=== PATIENT | male | born 1960 | race Caucasian/White ===

== ENCOUNTER 2016-10-06 08:57 | Emergency (ER) | payer MEDICARE, OTHER, SELFPAY ==
[2016-10-06 09:20] VITALS: BP 122/98
[2016-10-06] MEDS ORDERED: Ketorolac 60 MG/2 ML SDV IM ONE (09:45)
--- NOTE | 2016-10-06 09:51 | EDM.PDOC ---
ED HPI Trauma - General Chief Complaint: Lower Extremity Injury/Pain Stated Complaint: right knee pain Time Seen by Provider: 10/06/16 09:26 Source: Reports: Patient History Limitations: Reports: No limitations - History of Present Illness INITIAL COMMENTS - FREE TEXT/NARRATIVE: PT STATES HE HAS WORSENING OF CHRONIC RIGHT KNEE PAIN. SCHEDULED FOR MRI TOMORROW. DENIES RECENT FALL OR INJURY, CALF PAIN OR SWELLING, FEVER, CP, OR SOB. Occurred When: other (CHRONIC) Method of Injury: unknown Pain/Injury Location: Reports: none Consciousness: Reports: no loss of consciousness Associated Symptoms: Reports: no other symptoms Allergies/ADRs: Allergies cephalexin Allergy (Verified 10/06/16 09:20) Vomiting Home Medications: Ambulatory Orders Acetaminophen/oxyCODONE [Percocet 325-5 MG] 1 - 2 tab PO Q4H PRN 04/06/14 [ Confirmed 10/06/16] Fluticasone/Salmeterol [Advair 100-50 Diskus] 1 puff INH BID PRN 04/06/14 [ Confirmed 10/06/16] Metoprolol Tartrate [Lopressor] 25 mg PO DAILY 04/06/14 [Confirmed 10/06/16] atorvaSTATin [Lipitor] 20 mg PO DAILY 04/06/14 [Confirmed 10/06/16] Ticagrelor [Brilinta] 90 mg PO DAILY 02/27/15 [Confirmed 10/06/16] Aspirin [Lo-Dose Aspirin EC] 80 mg PO DAILY 10/06/16 [Confirmed 10/06/16] Prednisone [IMW: predniSONE] 20 mg PO WITHBREAKFAST #7 tab 10/06/16 Social & Family History - Tobacco Use Smoking Status *Q: Current Some Day Smoker Years of Tobacco use: 40 Packs/Tins Daily: 0.5 Used Tobacco, but Quit: No Month Tobacco Last Used: march Second Hand Smoke Exposure: No - Caffeine Use Caffeine Use: Reports: None - Alcohol Use Days Per Week of Alcohol Use: 0 - Recreational Drug Use Recreational Drug Use: Yes Drug Use in Last 12 Months: Yes Recreational Drug Type: Reports: Marijuana/Hashish Review of Systems - Review of Systems Review Of Systems: ROS reveals no pertinent complaints other than HPI. Constitutional: Reports: no symptoms Eyes: Reports: no symptoms Ears: Reports: no symptoms Nose: Reports: no symptoms Mouth/Throat: Reports: no symptoms Respiratory: Reports: No Symptoms Cardiovascular: Reports: no symptoms GI/Abdominal: Reports: No symptoms Musculoskeletal: Reports: leg pain, joint pain (RIGHT KNEE) Skin: Reports: no symptoms Neurological: Reports: No Symptoms Psychiatric: Reports: no symptoms Trauma Exam - Physical Exam Exam: See Below Exam Limited By: No limitations General Appearance: Reports: alert, WD/WN, no apparent distress Head: Reports: atraumatic, normocephalic Throat/Mouth: Reports: Normal inspection, Normal oropharynx, No airway compromise Respiratory Exam: Reports: no respiratory distress Back: Reports: full range of motion, normal inspection Extremities: Reports: no pedal edema, pain with movement (RIGHT KNEE), tenderness Neurologic: Reports: normal mood/affect, oriented x 3 Skin: Reports: Normal color, Warm/dry Course - Vital Signs Last Recorded V/S: Last Vital Signs Temp 99.4 F 10/06/16 09:15 Pulse 77 10/06/16 09:15 Resp 18 10/06/16 09:15 BP 122/98 H 10/06/16 09:15 Pulse Ox 98 10/06/16 09:15 - Orders/Labs/Meds Orders: Active Orders 24 hr Category Date Time Status Ketorolac [Toradol] Med 10/06/16 09:45 Once 60 mg IM ONETIME ONE - Re-Assessments/Exams Free Text/Narrative Re-Assessment/Exam: 10/06/16 09:51 PT AFEBRILE, NONTOXIC APPEARING. CRUTCHES AND TORADOL GIVEN. SCHEDULED FOR MRI TOMORROW. Departure - Departure Time of Disposition: 09:53 Disposition: Home, Self-Care 01 Condition: good Clinical Impression: Arthritis Knee pain, chronic Qualifiers: Laterality: right Qualified Code(s): M25.561 - Pain in right knee; G89.29 - Other chronic pain Instructions: Crutch Use, [id number], Knee Pain, [id number] Forms: ED Department Discharge - My Orders Last 24 Hours: My Active Orders 10/06/16 09:45 Ketorolac [Toradol] 60 mg IM ONETIME ONE - Assessment/Plan Last 24 Hours: My Active Orders 10/06/16 09:45 Ketorolac [Toradol] 60 mg IM ONETIME ONE Assessment:: CHRONIC RIGHT KNEE PAIN Plan: CRUTCHES / MRI / FOLLOW UP IN CLINIC NEXT WEEK
== END 2016-10-06 10:45 | disposition home or self-care (01) ==
LOC: KA.ED 08:57
DX: M25.561 Pain in right knee (principal); G89.29 Other chronic pain; M19.90 Unspecified osteoarthritis, unspecified site; Z88.1 Allergy status to other antibiotic agents
CPT/HCPCS: 96372; 99283; J1885

== ENCOUNTER 2016-12-02 15:40 | Emergency (ER) | payer MEDICARE, SELFPAY ==
[2016-12-02] MEDS ORDERED: Diazepam 5 MG Tab PO ONE (16:02)
[2016-12-02] MEDS ORDERED: Dexamethasone 10 MG/ML SDV IM ONE (16:02)
[2016-12-02] MEDS ORDERED: Ketorolac 60 MG/2 ML SDV IM ONE (16:02)
--- NOTE | 2016-12-02 16:18 | EDM.PDOC ---
ED HPI GENERAL MEDICAL PROBLEM - General Chief Complaint: Back Pain or Injury Stated Complaint: LOW BACK PAIN Time Seen by Provider: 12/02/16 15:56 Source of Information: Reports: Patient History Limitations: Reports: No Limitations - History of Present Illness INITIAL COMMENTS - FREE TEXT/NARRATIVE: PT STATES HE HAS RIGHT KNEE REPLACEMENT 2 WEEKS AGO AND HAS BEEN FAVORING LIMB AND DEVELOPED LOW BACK PAIN. DENIES FALL OR TRAUMA, FLANK PAIN, ABD PAIN, N/V/D , PAIN RADIATION DOWN LEGS, SADDLE ANESTHESIA, OR URINARY/BOWEL INCONT. 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: Other Medication(s) (OXYCODONE) - Related Data Allergies Allergy/AdvReac Type Severity Reaction Status Date / Time cephalexin Allergy Vomiting Verified 12/02/16 16:45 Home Meds: Home Meds Fluticasone/Salmeterol [Advair 100-50 Diskus] 1 puff INH BID PRN 04/06/14 [ History] Metoprolol Tartrate [Lopressor] 25 mg PO DAILY 04/06/14 [History] atorvaSTATin [Lipitor] 20 mg PO DAILY 04/06/14 [History] Aspirin [Lo-Dose Aspirin EC] 80 mg PO DAILY 10/06/16 [History] Albuterol/Ipratropium [Combivent Respimat] 1 puff INH Q6H PRN 12/02/16 [History] oxyCODONE HCl [Oxycontin] 10 mg PO BID 12/02/16 [History] oxyCODONE HCl/Acetaminophen [Percocet 10-325 mg Tablet] 1 tab PO Q6H PRN [History] Social & Family History - Tobacco Use Smoking Status *Q: Current Some Day Smoker Years of Tobacco use: 40 Packs/Tins Daily: 0.5 Used Tobacco, but Quit: No Month Tobacco Last Used: march Second Hand Smoke Exposure: No - Caffeine Use Caffeine Use: Reports: None - Alcohol Use Days Per Week of Alcohol Use: 0 - Recreational Drug Use Recreational Drug Use: Yes Drug Use in Last 12 Months: Yes Recreational Drug Type: Reports: Marijuana/Hashish ED ROS GENERAL - Review of Systems Review Of Systems: ROS reveals no pertinent complaints other than HPI. Constitutional: Reports: No Symptoms HEENT: Reports: No Symptoms Respiratory: Reports: No Symptoms Cardiovascular: Reports: No Symptoms Endocrine: Reports: No Symptoms GI/Abdominal: Reports: No Symptoms : Reports: No Symptoms Musculoskeletal: Reports: Back Pain Skin: Reports: No Symptoms Neurological: Reports: No Symptoms Psychiatric: Reports: No Symptoms Hematologic/Lymphatic: Reports: No Symptoms Immunologic: Reports: No Symptoms ED EXAM,LOWER BACK PAIN/INJURY - Physical Exam Exam: See Below Exam Limited By: No Limitations General Appearance: Alert, WD/WN, No Apparent Distress Throat/Mouth: Normal Inspection, Normal Oropharynx, No Airway Compromise Head: Atraumatic, Normocephalic Neck: Normal Inspection Respiratory/Chest: No Respiratory Distress, Lungs Clear, Normal Breath Sounds Cardiovascular: Regular Rate, Rhythm, No Murmur GI/Abdominal: Normal Bowel Sounds, Soft, Non-Tender Back Exam: Decreased Range of Motion (SECONDARY TO PAIN), Paraspinal Tenderness. No: CVA Tenderness (L), CVA Tenderness (R), Vertebral Tenderness Extremities: Normal Inspection, Normal Range of Motion, Non-Tender, No Pedal Edema Neurological: Alert, Normal Dorsiflexion, Normal Plantar Flexion, No Motor/ Sensory Deficits, Oriented x 3 Psychiatric: Normal Affect, Normal Mood Skin Exam: Warm, Dry, Intact, Normal Color, No Rash Lymphatic: No Adenopathy Course - Orders/Labs/Meds Orders: Active Orders 24 hr Category Date Time Status Dexamethasone Med 12/02/16 16:02 Once 8 mg IM ONETIME ONE Diazepam [Valium] Med 12/02/16 16:02 Once 5 mg PO ONETIME ONE Ketorolac [Toradol] Med 12/02/16 16:02 Once 60 mg IM ONETIME ONE - Re-Assessments/Exams Free Text/Narrative Re-Assessment/Exam: 12/02/16 17:08 PT AFEBRILE, NONTOXIC APPEARING, PAIN MOSTLY RELIEVED. Departure - Departure Time of Disposition: 17:09 Disposition: Home, Self-Care 01 Condition: good Clinical Impression: Low back pain Qualifiers: Chronicity: chronic Back pain laterality: bilateral Sciatica presence: without sciatica Qualified Code(s): M54.5 - Low back pain; G89.29 - Other chronic pain - Discharge Information Instructions: Back Pain, Adult Additional Instructions: FOLLOW UP WITH DR HAILE NEXT WEEK. - My Orders Last 24 Hours: My Active Orders 12/02/16 16:02 Dexamethasone 8 mg IM ONETIME ONE Diazepam [Valium] 5 mg PO ONETIME ONE Ketorolac [Toradol] 60 mg IM ONETIME ONE - Assessment/Plan Last 24 Hours: My Active Orders 12/02/16 16:02 Dexamethasone 8 mg IM ONETIME ONE Diazepam [Valium] 5 mg PO ONETIME ONE Ketorolac [Toradol] 60 mg IM ONETIME ONE Assessment:: LOW BACK PAIN Plan: FOLLOW UP WITH DR HAILE IN 3-5 DAYS
[2016-12-02 16:54] VITALS: BP 128/83
== END 2016-12-02 17:20 | disposition home or self-care (01) ==
LOC: KA.ED 15:40
DX: M54.5 Low back pain (principal); G89.29 Other chronic pain; F17.210 Nicotine dependence, cigarettes, uncomplicated; Z88.1 Allergy status to other antibiotic agents; Z79.82 Long term (current) use of aspirin; Z79.899 Other long term (current) drug therapy
CPT/HCPCS: 96372; 99283; A9270; J1100; J1885

== ENCOUNTER 2017-04-14 19:52 | Emergency (ER) | payer MEDICARE, MEDICAID, SELFPAY ==
[2017-04-14 20:03] VITALS: BP 135/80
--- NOTE | 2017-04-14 20:19 | EDM.PDOC ---
ED HPI GENERAL MEDICAL PROBLEM - General Stated Complaint: puncture wound to foot Time Seen by Provider: 04/14/17 20:05 Source of Information: Reports: Patient History Limitations: Reports: No Limitations - History of Present Illness INITIAL COMMENTS - FREE TEXT/NARRATIVE: Patient presents with right foot/gt toe pain and redness after stepping on a felecia wire about 24 hours ago. The wire poked through the sole of his tennis shoe. He says he had a tetanus shot in 2011 in [place]. Right Feet Pain Score (Numeric/FACES): 5 - Related Data Allergies Allergy/AdvReac Type Severity Reaction Status Date / Time cephalexin Allergy Vomiting Verified 04/14/17 20:03 Home Meds: Home Meds Fluticasone/Salmeterol [Advair 100-50 Diskus] 1 puff INH BID 04/06/14 [History] Metoprolol Tartrate [Lopressor] 25 mg PO DAILY 04/06/14 [History] atorvaSTATin [Lipitor] 20 mg PO BEDTIME 04/06/14 [History] Aspirin [Lo-Dose Aspirin EC] 80 mg PO DAILY 10/06/16 [History] Albuterol/Ipratropium [Combivent Respimat] 1 puff INH Q6H PRN 12/02/16 [History] oxyCODONE HCl [Oxycontin] 10 mg PO BID 12/02/16 [History] oxyCODONE HCl/Acetaminophen [Percocet 10-325 mg Tablet] 1 tab PO Q6H PRN [History] Social & Family History - Tobacco Use Smoking Status *Q: Current Some Day Smoker Years of Tobacco use: 40 Packs/Tins Daily: 0.5 Used Tobacco, but Quit: No Month Tobacco Last Used: march Second Hand Smoke Exposure: No - Caffeine Use Caffeine Use: Reports: None - Alcohol Use Days Per Week of Alcohol Use: 0 - Recreational Drug Use Recreational Drug Use: Yes Drug Use in Last 12 Months: Yes Recreational Drug Type: Reports: Marijuana/Hashish Recreational Drug Use Frequency: Weekly Review of Systems - Review of Systems Review Of Systems: See Below Constitutional: Denies: Chills, Fever Eyes: Denies: Vision Change Ears: Denies: Dizziness Nose: Reports: No Symptoms Mouth/Throat: Reports: No Symptoms Respiratory: Denies: Shortness of Breath Cardiovascular: Denies: Chest Pain GI/Abdominal: Denies: Abdominal Pain Musculoskeletal: Reports: Foot Pain Skin: Denies: Cyanosis, Jaundice, Mottled, Pallor, Diaphoresis Neurological: Denies: Confusion ED EXAM, GENERAL - Physical Exam Exam: See Below Exam Limited By: No Limitations General Appearance: Alert, WD/WN, No Apparent Distress Eye Exam: Bilateral Eye: EOMI, Normal Inspection, PERRL Ears: Normal External Exam, Hearing Grossly Normal Nose: Normal Inspection, No Blood Throat/Mouth: Normal Lips, Normal Voice, No Airway Compromise Head: Atraumatic, Normocephalic Neck: Full Range of Motion Respiratory/Chest: No Respiratory Distress, No Accessory Muscle Use Extremities: Other (Right foot has mild erythema in distal third medially; involving Gt toe, 2nd toe. There is a puncture wound evident at plantar surface of webspace between Gt and 2nd toes. Joints have preserved ROM actively and passively but with some discomfort of Gt toe.) Neurological: Alert, Oriented, Normal Cognition, No Motor/Sensory Deficits Psychiatric: Normal Affect, Normal Mood Skin Exam: Warm, Dry, No Rash Course - Vital Signs Last Recorded V/S: Last Vital Signs Temp 97.6 F 04/14/17 20:00 Pulse 76 04/14/17 20:00 Resp 18 04/14/17 20:00 BP 135/80 04/14/17 20:00 Pulse Ox 97 04/14/17 20:00 - Orders/Labs/Meds Orders: Active Orders 24 hr Category Date Time Status Foot 2V Rt [CR] Stat Exams 04/14/17 20:11 Ordered - Re-Assessments/Exams Free Text/Narrative Re-Assessment/Exam: 04/14/17 20:42 Xrays show no evidence of foreign body or other pathology. Reviewed latest antibiotic recommendations on UpToDate and will treat with Cipro for coverage of Pseudomonas since it was through the sole of shoe. Discussed treatment plan and expectations with patient and his , including that if Cipro doesn't take care of this he will likely require IV antibiotics and/or surgical debridement. Pt agrees and is discharged in stable condition. Departure - Departure Time of Disposition: 20:40 Disposition: Home, Self-Care 01 Condition: Good Clinical Impression: Puncture wound of plantar aspect of right foot with infection Qualifiers: Encounter type: initial encounter Qualified Code(s): S91.331A - Puncture wound without foreign body, right foot, initial encounter; L08.9 - Local infection of the skin and subcutaneous tissue, unspecified; L08.9 - Local infection of the skin and subcutaneous tissue, unspecified - Discharge Information Additional Instructions: 1. Take the Cipro as directed. 2. Follow up with Dr. Cruz on Tuesday for recheck. 3. If worsening noticeably or fever developing go to ER over the weekend. - My Orders Last 24 Hours: My Active Orders 04/14/17 20:11 Foot 2V Rt [CR] Stat - Assessment/Plan Last 24 Hours: My Active Orders 04/14/17 20:11 Foot 2V Rt [CR] Stat
[2017-04-14] MEDS ORDERED: Diphtheria,Pertussis(Acell),Tetanus Vaccine 0.5 ML SDV IM ONE (20:21)
[2017-04-14] MEDS ORDERED: Ciprofloxacin 500 MG Tab PO ONE (20:38)
== END 2017-04-14 20:47 | disposition home or self-care (01) ==
LOC: KA.ED 19:52
DX: S91.331A Puncture wound without foreign body, right foot, initial encounter (principal); L08.9 Local infection of the skin and subcutaneous tissue, unspecified; Z23 Encounter for immunization; F17.210 Nicotine dependence, cigarettes, uncomplicated; Z88.1 Allergy status to other antibiotic agents; Z79.82 Long term (current) use of aspirin; Z79.899 Other long term (current) drug therapy; W22.8XXA Striking against or struck by other objects, initial encounter
CPT/HCPCS: 73620; 90471; 90715; 99283; A9270

== ENCOUNTER 2017-09-16 11:00 | Emergency (ER) | payer MEDICARE, MEDICAID ==
[2017-09-16] MEDS ORDERED: Sodium Chloride 0.9% 5 ML Syringe FLUSH PRN (11:19)
--- NOTE | 2017-09-16 11:30 | EDM.PDOC ---
ED HPI GENERAL MEDICAL PROBLEM - General Chief Complaint: Chest Pain Stated Complaint: CHEST PAIN Time Seen by Provider: 09/16/17 11:16 Source of Information: Reports: Patient History Limitations: Reports: No Limitations - History of Present Illness INITIAL COMMENTS - FREE TEXT/NARRATIVE: PATIENT IS A 57-YEAR-OLD GENTLEMAN WHO PRESENTS TO THE EMERGENCY DEPARTMENT THIS MORNING WITH A COMPLAINT OF CHEST PAIN. PAIN IS DESCRIBED TIGHTNESS ACROSS MIDDLE OF CHEST, HAS BEEN INTERMITTENT FOR ABOUT 1 WEEK, LASTS A FEW MINUTES, RESOLVES SPONTANEOUSLY, AND HAS NO RADIATION. PATIENT UNDERWENT SPINAL INJECTION FOR LOW BACK PAIN ON SEPTEMBER 14. PROVIDER NOTES FROM PROCEDURE STATED IT WAS UNEVENTFUL. PATIENT STATES BACK PAIN REMAINS, HOWEVER DENIES SHORTNESS OF BREATH, NAUSEA, VOMITING, DIARRHEA, ABDOMINAL PAIN, SADDLE ANESTHESIA, BLADDER OR BOWEL INCONTINENCE, HEADACHE, OR FEVER. Onset: Gradual Duration: Minutes: Location: Reports: Chest Quality: Reports: Other (TIGHTNESS) Improves with: Reports: Other (SPONTANEOUSLY) Worsens with: Reports: None Associated Symptoms: Reports: No Other Symptoms - Related Data Allergies Allergy/AdvReac Type Severity Reaction Status Date / Time cephalexin Allergy Vomiting Verified 09/16/17 11:13 Home Meds: Home Meds Fluticasone/Salmeterol [Advair 100-50 Diskus] 1 puff INH BID 04/06/14 [History] Metoprolol Tartrate [Lopressor] 25 mg PO DAILY 04/06/14 [History] atorvaSTATin [Lipitor] 20 mg PO BEDTIME 04/06/14 [History] Aspirin [Lo-Dose Aspirin EC] 80 mg PO DAILY 10/06/16 [History] Albuterol/Ipratropium [Combivent Respimat] 1 puff INH Q6H PRN 12/02/16 [History] oxyCODONE HCl [Oxycontin] 10 mg PO BID 12/02/16 [History] oxyCODONE HCl/Acetaminophen [Percocet 10-325 mg Tablet] 1 tab PO Q6H PRN [History] Past Medical History Cardiovascular History: Reports: High Cholesterol, Hypertension, [place], Stents Musculoskeletal History: Reports: Back Pain, Chronic, Neck Pain, Chronic - Past Surgical History Cardiovascular Surgical History: Reports: Coronary Artery Bypass Social & Family History - Family History Family Medical History: Noncontributory - Tobacco Use Smoking Status *Q: Current Some Day Smoker Years of Tobacco use: 40 Packs/Tins Daily: 0.5 Used Tobacco, but Quit: No Month Tobacco Last Used: march Hand Smoke Exposure: No - Caffeine Use Caffeine Use: Reports: None - Alcohol Use Days Per Week of Alcohol Use: 0 - Recreational Drug Use Recreational Drug Use: Yes Drug Use in Last 12 Months: Yes Recreational Drug Type: Reports: Marijuana/Hashish Recreational Drug Use Frequency: Weekly ED ROS GENERAL - Review of Systems Review Of Systems: ROS reveals no pertinent complaints other than HPI. Constitutional: Reports: No Symptoms HEENT: Reports: No Symptoms Respiratory: Reports: No Symptoms Cardiovascular: Reports: Chest Pain Endocrine: Reports: No Symptoms GI/Abdominal: Reports: No Symptoms : Reports: No Symptoms Musculoskeletal: Reports: Back Pain (OF CHRONIC NATURE) Skin: Reports: No Symptoms Neurological: Reports: No Symptoms Psychiatric: Reports: No Symptoms Hematologic/Lymphatic: Reports: No Symptoms Immunologic: Reports: No Symptoms ED EXAM, GENERAL - Physical Exam Exam: See Below Exam Limited By: No Limitations General Appearance: Alert, WD/WN, No Apparent Distress Nose: Normal Inspection, Normal Mucosa, No Blood Throat/Mouth: Normal Inspection, Normal Oropharynx, No Airway Compromise Head: Atraumatic, Normocephalic Neck: Normal Inspection, Supple, Non-Tender Respiratory/Chest: No Respiratory Distress, Lungs Clear, Normal Breath Sounds, No Accessory Muscle Use, Chest Non-Tender Cardiovascular: Regular Rate, Rhythm, No Murmur GI/Abdominal: Normal Bowel Sounds, Soft, Non-Tender, No Organomegaly, No Distention, No Abnormal Bruit, No Mass Back Exam: Paraspinal Tenderness. No: CVA Tenderness (L), CVA Tenderness (R) Extremities: Normal Inspection, No Pedal Edema Neurological: Alert, Oriented, Normal Cognition Psychiatric: Normal Affect, Normal Mood Skin Exam: Warm, Dry, Intact, Normal Color, No Rash Lymphatic: No Adenopathy EKG INTERPRETATION EKG Date: 09/16/17 Time: 11:00 Rhythm: Other (Sinus bradycardia) Rate (Beats/Min): 56 [place]: Normal P-Wave: Present QRS: Normal ST-T: Normal QT: Normal Comparison: Change From Previous EKG Course - Vital Signs Last Recorded V/S: Last Vital Signs Temp 96.9 F 09/16/17 11:16 Pulse 54 L 09/16/17 11:16 Resp 16 09/16/17 11:16 BP 137/75 09/16/17 11:16 Pulse Ox 98 09/16/17 11:16 - Orders/Labs/Meds Orders: Active Orders 24 hr Category Date Time Status EKG Documentation Completion [RC] ASDIRECTED Care 09/16/17 11:19 Ordered Peripheral IV Care [RC] . DIRECTED Care 09/16/17 11:19 Ordered Chest 2V [CR] Stat Exams 09/16/17 11:16 Ordered CBC WITH AUTO DIFF [HEME] Stat Lab 09/16/17 11:16 Ordered COMPREHENSIVE METABOLIC PN,CMP [CHEM] Stat Lab 09/16/17 11:16 Ordered INR,PT,PROTHROMBIN TIME [COAG] Stat Lab 09/16/17 11:16 Ordered MAGNESIUM [CHEM] Stat Lab 09/16/17 11:16 Ordered PTT,PARTIAL THROMBOPLSTIN TIME [COAG] Stat Lab 09/16/17 11:16 Ordered TROPONIN I [CHEM] Stat Lab 09/16/17 11:16 Ordered UA W/MICROSCOPIC [URIN] Stat Lab 09/16/17 11:16 Ordered Sodium Chloride 0.9% [Syrex Flush] Med 09/16/17 11:19 Ordered 5 ml FLUSH Q8HR PRN Peripheral IV Insertion Adult [OM.PC] Routine Oth 09/16/17 11:19 Ordered EKG 12 Lead [EK] Routine Ther 09/16/17 11:16 Ordered Medication Orders Sodium Chloride (Syrex Flush) 5 ml FLUSH Q8HR PRN PRN Reason: Keep Vein Open Meds: Medications Generic Name Dose Route Start Last Admin Trade Name Freq PRN Reason Stop Dose Admin Sodium Chloride 5 ml 09/16/17 11:19 Syrex Flush FLUSH Q8HR PRN Keep Vein Open - Radiology Interpretation Free Text/Narrative:: Chest x-ray x-ray shows no acute cardiopulmonary process - Re-Assessments/Exams Free Text/Narrative Re-Assessment/Exam: 09/16/17 12:08 Patient afebrile, nontoxic appearing, vital signs stable, no chest pain or shortness of breath. Patient will follow-up with Dr. Cuellar next week. Departure - Departure Time of Disposition: 12:09 Disposition: Home, Self-Care 01 Condition: Good Clinical Impression: Atypical chest pain Instructions: Nonspecific Chest Pain, [id number] Referrals: Nancy Graham MD [Primary Care Provider] - Additional Instructions: Follow-up with Dr. Cuellar Tuesday or Tuesday next week. Return to emergency department sooner if symptoms continue or worsen. - My Orders Last 24 Hours: My Active Orders 09/16/17 11:16 Chest 2V [CR] Stat CBC WITH AUTO DIFF [HEME] Stat COMPREHENSIVE METABOLIC PN,CMP [CHEM] Stat INR,PT,PROTHROMBIN TIME [COAG] Stat MAGNESIUM [CHEM] Stat PTT,PARTIAL THROMBOPLSTIN TIME [COAG] Stat TROPONIN I [CHEM] Stat UA W/MICROSCOPIC [URIN] Stat EKG 12 Lead [EK] Routine 09/16/17 11:19 EKG Documentation Completion [RC] ASDIRECTED Peripheral IV Care [RC] . DIRECTED Sodium Chloride 0.9% [Syrex Flush] 5 ml FLUSH Q8HR PRN Peripheral IV Insertion Adult [OM.PC] Routine - Assessment/Plan Last 24 Hours: My Active Orders 09/16/17 11:16 Chest 2V [CR] Stat CBC WITH AUTO DIFF [HEME] Stat COMPREHENSIVE METABOLIC PN,CMP [CHEM] Stat INR,PT,PROTHROMBIN TIME [COAG] Stat MAGNESIUM [CHEM] Stat PTT,PARTIAL THROMBOPLSTIN TIME [COAG] Stat TROPONIN I [CHEM] Stat UA W/MICROSCOPIC [URIN] Stat EKG 12 Lead [EK] Routine 09/16/17 11:19 EKG Documentation Completion [RC] ASDIRECTED Peripheral IV Care [RC] . DIRECTED Sodium Chloride 0.9% [Syrex Flush] 5 ml FLUSH Q8HR PRN Peripheral IV Insertion Adult [OM.PC] Routine Assessment:: Atypical chest pain Plan: Follow-up with Dr. Cuellar next week
[2017-09-16 11:52] LABS: CHLORIDE,CL 106 mmol/L (98-115); SODIUM,NA 139 mmol/L (136-145)
[2017-09-16 12:05] VITALS: BP 130/81
== END 2017-09-16 12:14 | disposition home or self-care (01) ==
LOC: KA.ED 11:00
DX: R07.89 Other chest pain (principal); E78.00 Pure hypercholesterolemia, unspecified; I10 Essential (primary) hypertension; F17.210 Nicotine dependence, cigarettes, uncomplicated; Z88.1 Allergy status to other antibiotic agents; Z79.899 Other long term (current) drug therapy; Z79.82 Long term (current) use of aspirin
CPT/HCPCS: 71046; 80053; 81001; 83735; 84484; 85025; 85610; 85730; 99285

== ENCOUNTER 2019-01-30 08:24 | Day surgery (SDC) | payer MEDICARE, MEDICAID, OTHER ==
[~2019-01-30 08:24] MED LIST: Lactated Ringers 1,000 ML IV SCH; Midazolam 1 MG/ML 2 ML SDV ONE; Propofol 200 MG/20 ML SDV ONE; Sodium Chloride 0.9% 10 ML Syringe FLUSH PRN
[2019-01-30] MEDS ORDERED: Propofol 200 MG/20 ML SDV IV ONE (09:06)
[2019-01-30] MEDS ORDERED: Midazolam 1 MG/ML 2 ML SDV IV ONE (09:06)
--- NOTE | 2019-01-30 09:09 | PCM.PN ---
- General Info Date of Service: 01/30/19 - Review of Systems Systems Review Comment:: Patient here for colonoscopy. He has a history of rectal bleeding. He also has problems with symptomatic hemorrhoids. He is medically stable to proceed with no recent significant changes to his health status. I have discussed the proposed colonoscopy with possible hemorrhoid banding with the patient. He agrees to proceed accepting risks. - Patient Data Vitals - Most Recent: Last Vital Signs Temp 98 F 01/30/19 08:27 Pulse 70 01/30/19 08:27 Resp 17 01/30/19 08:27 BP 130/78 01/30/19 08:27 Pulse Ox 98 01/30/19 08:27 Weight - Most Recent: 60.781 kg Med Orders - Current: Current Medications Lactated Ringer's (Ringers, Lactated) 1,000 mls @ 50 mls/hr IV ASDIRECTED [facility] Last Admin: 01/30/19 08:30 Dose: 50 mls/hr Sodium Chloride (Saline Flush) 10 ml FLUSH Q8HR PRN PRN Reason: keep vein open Discontinued Medications Midazolam HCl (Versed 1 Mg/Ml) Confirm Administered Dose 2 mg .ROUTE .STK-MED ONE Stop: 01/30/19 07:41 Propofol (Diprivan 20 Ml) Confirm Administered Dose 200 mg .ROUTE .STK-MED ONE Stop: 01/30/19 07:41 - Problem List Review Problem List Initiated/Reviewed/Updated: Yes - My Orders Last 24 Hours: My Active Orders 01/30/19 07:14 Resuscitation Status Routine 01/30/19 08:00 Peripheral IV Care [RC] . DIRECTED Vital Signs [RC] PER UNIT ROUTINE Lactated Ringers [Ringers, Lactated] 1,000 ml IV ASDIRECTED Sodium Chloride 0.9% [Saline Flush] 10 ml FLUSH Q8HR PRN Peripheral IV Insertion Adult [OM.PC] Routine 01/30/19 08:30 Patient to Empty Bladder [RC] ASDIRECTED 01/30/19 09:00 Verify Patient Consent Obtain [RC] ASDIRECTED 01/30/19 Breakfast Nothing Per Oral Diet [DIET] - Assessment Assessment:: Rectal Bleeding Symptomatic Hemorrhoids - Plan Plan:: Colonoscopy with possible hemorrhoid banding
--- NOTE | 2019-01-30 10:02 | PCM.OPNOTE ---
- General Post-Op/Procedure Note Date of Surgery/Procedure: 01/30/19 Operative Procedure(s): Colonoscopy with Polypectomy and Hemorrhoid Banding Findings: Multiple colon polyps Internal and External Hemorrhoids Pre Op Diagnosis: History of rectal bleeding. Symptomatic hemorrhoids Post-Op Diagnosis: Colon Polyps. Hemorrhoids Anesthesia Technique: MAC Primary Surgeon: Aroldo Moralez Pathology: Colon Polyps Output, Urine Amount: 0 EBL in mLs: 2 Complications: None Condition: Good
[2019-01-30 10:46] VITALS: BP 146/75; PULSE 40
--- NOTE | 2019-01-30 15:45 | OR ---
DATE OF SURGERY: 01/30/2019 SURGEON: Aroldo Moralez MD PREOPERATIVE DIAGNOSIS: History of rectal bleeding and symptomatic hemorrhoids. POSTOPERATIVE DIAGNOSIS: Colon polyps and internal and external hemorrhoids. OPERATION PERFORMED: Colonoscopy with polypectomy and hemorrhoid banding. INDICATIONS FOR SURGERY: This 58-year-old male has a history of rectal bleeding and has been having symptoms related to his hemorrhoids. He desires hemorrhoid banding if indicated and also comes for colonoscopy. FINDINGS: Multiple polyps were noted on today's exam. In the cecum, there is a 4 mm sessile polyp. There is a 5 mm sessile polyp in the mid transverse colon and a 7 mm semi-pedunculated polyp in the sigmoid colon 30 cm from the anal verge. The remainder of the colon appears normal. The patient does have internal and external hemorrhoids. DESCRIPTION OF PROCEDURE: The patient was taken to the operating room. He was given intravenous sedation and with him in the left lateral decubitus position, digital rectal exam was performed showing no rectal masses. The Olympus colonoscope was inserted into the rectum. Retroflexed examination of the rectal canal is performed. The scope was then carefully advanced under direct visualization through the entire length of the colon until the cecum is reached. Cecal acquisition is confirmed by noting normal internal cecal anatomy including the appendiceal orifice and ileocecal valve. The light is also noted to transilluminate the abdominal wall in the right lower quadrant. In the cecum, the above-described polyp was identified. It was removed completely with multiple bites of the biopsy forceps. The scope was then slowly withdrawn sequentially re-examining the colonic segments and in the transverse colon, the other small polyp is identified and removed completely with multiple bites of the biopsy forceps. The scope was further withdrawn and in the sigmoid colon, the slightly larger polyp is identified. This is removed with a cautery snare. This polyp is retrieved into a polyp trap. Examination was then completed. No sign of any complication was noted. With the patient's symptoms related to his hemorrhoids and internal hemorrhoids along with external hemorrhoids noted on the exam, hemorrhoid banding is performed. Bands are placed on internal hemorrhoids at the 4 o'clock position on the patient's left side and the 7 o'clock position on the patient's right side posteriorly. Good tissue purchase is achieved and no sign of complication is noted. The patient is then taken from the operating room in satisfactory condition. ESTIMATED BLOOD LOSS: 2 mL. COMPLICATIONS: None. PROGNOSIS: Good. /[id number]/MODL MTDD
== END 2019-01-30 11:21 | disposition home or self-care (01) ==
LOC: KA.SDS 08:24
PROVIDERS: ATTEND Surgery
DX: K64.8 Other hemorrhoids (principal); K64.4 Residual hemorrhoidal skin tags; D12.0 Benign neoplasm of cecum; D12.3 Benign neoplasm of transverse colon; D12.5 Benign neoplasm of sigmoid colon; K62.5 Hemorrhage of anus and rectum; I25.10 Atherosclerotic heart disease of native coronary artery without angina pectoris; I10 Essential (primary) hypertension; J44.9 Chronic obstructive pulmonary disease, unspecified; F17.200 Nicotine dependence, unspecified, uncomplicated; C67.9 Malignant neoplasm of bladder, unspecified; Z88.1 Allergy status to other antibiotic agents; Z95.5 Presence of coronary angioplasty implant and graft; Z79.01 Long term (current) use of anticoagulants; Z79.82 Long term (current) use of aspirin; Z79.02 Long term (current) use of antithrombotics/antiplatelets; Z79.899 Other long term (current) drug therapy
CPT/HCPCS: 00811; 45380; 45385; 46946; J2250; J2704; J7120; 88305

== ENCOUNTER → 2019-12-16 08:22 | Emergency (ER) | payer MEDICARE, MEDICAID ==
[~2019-12-16 08:22] MED LIST changes: -Lactated Ringers 1,000 ML IV SCH; +Meperidine PF 25 MG/ML SDV ONE; -Midazolam 1 MG/ML 2 ML SDV ONE; -Propofol 200 MG/20 ML SDV ONE; -Sodium Chloride 0.9% 10 ML Syringe FLUSH PRN
--- NOTE | 2019-12-16 09:29 | CR ---
[id number] RAD/RAD Cervical Spine 2-3V Exam: RAD Cervical Spine 2-3V Indication:NECK PAIN. Comparison: MRI from 2015. Discussion: Cervical spondylosis, including advanced degenerative disc disease at C4-5 through C6-7. Mild to moderate changes of spondylosis elsewhere in the cervical spine. No acute fracture or compression deformity. Impression: Cervical spondylosis. Mariusz Harmon MD 12/16/19 0928 Thank you for allowing us to participate in the care of your patient.
[2019-12-16] MEDS: Cyclobenzaprine 10 MG Tab PO ONE (09:52)
[2019-12-16] MEDS: Meperidine PF 25 MG/ML Syringe IM ONE (10:05)
[2019-12-16 10:21] LABS: ANION GAP 12.1 mmol/L (5-15); CHLORIDE,CL 107 mmol/L (98-115); SODIUM,NA 140 mmol/L (136-145)
--- NOTE | 2019-12-16 10:28 | EDM.PDOC ---
ED HPI GENERAL MEDICAL PROBLEM - General Chief Complaint: General Stated Complaint: NECK PAIN/LEFT ARM PAIN Time Seen by Provider: 12/16/19 08:35 Source of Information: Reports: Patient History Limitations: Reports: No Limitations - History of Present Illness INITIAL COMMENTS - FREE TEXT/NARRATIVE: 59-year-old male presents emergency room with severe acute on chronic episode of neck pain with new symptoms of radicular left arm pain. He reported his symptoms became quite severe and uncomfortable last night. He took some oxycodone that he had for chronic Pain. He noticed some pain rating down his left arm. He denies any chest pain or shortness of breath. No dyspnea. No diaphoresis or sweats. No nausea or vomiting. No abdominal pain. His neck pain is lateralized to the left. He denies any arm weakness. He's had a long history of cervical spondylosis. He does have a history of coronary artery disease and CABG in the past. He denies significant cardiac symptoms at this time. I will go ahead and get an EKG and lab work including a troponin, x-rays of cervical spine today. Onset Date: 12/15/19 Duration: Hour(s):, Waxing/Waning Location: Reports: Neck, Upper Extremity, Left Quality: Reports: Burning Severity: Moderate Improves with: Reports: Rest, Other (oxycodone) Worsens with: Reports: None Associated Symptoms: Denies: Chest Pain, Diaphoresis, Fever/Chills, Nausea/ Vomiting, Shortness of Breath Treatments DIE SETTER: Reports: Other Medication(s) (percocet) Neck Pain Score (Numeric/FACES): 7 - Related Data Allergies Allergy/AdvReac Type Severity Reaction Status Date / Time cephalexin Allergy Vomiting Verified 01/26/19 14:19 Home Meds: Home Meds Aspirin [Lo-Dose Aspirin EC] 81 mg PO DAILY 10/06/16 [History] oxyCODONE HCl/Acetaminophen [Percocet 10-325 mg Tablet] 1 - 2 tab PO Q6H PRN [History] Nitroglycerin [Nitrostat] 0.4 mg PO ASDIRECTED PRN 09/16/17 [History] Triamcinolone Acetonide [Triamcinolone Acetonide 0.1% Oint] 2 - 3 ml IDERM ASDIRECTED PRN 09/16/17 [History] Albuterol/Ipratropium [Combivent Respimat] 1 puff IH DAILY PRN 01/26/19 [History ] Fluticasone/Salmeterol [Advair 100-50] 1 puff INH BID 01/26/19 [History] Tamsulosin HCl [Flomax] 0.4 mg PO DAILY 01/26/19 [History] amLODIPine Besylate [Norvasc] 2.5 mg PO DAILY 01/26/19 [History] atorvaSTATin Calcium [Atorvastatin Calcium] 40 mg PO BEDTIME 01/26/19 [History] Clopidogrel [Plavix] 75 mg PO DAILY 12/16/19 [History] Past Medical History HEENT History: Reports: None Cardiovascular History: Reports: High Cholesterol, Hypertension, MD, Stents Respiratory History: Reports: COPD Gastrointestinal History: Reports: Colon Polyp, Hemorrhoids, Other (See Below) Other Gastrointestinal History: cyst on left kidney Genitourinary History: Reports: Other (See Below) Other Genitourinary History: mass on bladder, blood in urine Musculoskeletal History: Reports: Back Pain, Chronic, Neck Pain, Chronic Neurological History: Reports: None Psychiatric History: Reports: PTSD Endocrine/Metabolic History: Reports: None Hematologic History: Reports: None Oncologic (Cancer) History: Reports: Bladder - Infectious Disease History Infectious Disease History: Reports: Chicken Pox - Past Surgical History HEENT Surgical History: Reports: None Cardiovascular Surgical History: Reports: Coronary Artery Bypass Respiratory Surgical History: Reports: None GI Surgical History: Reports: Appendectomy, Colonoscopy, Polypectomy Endocrine Surgical History: Reports: None Neurological Surgical History: Reports: Scoliosis Musculoskeletal Surgical History: Reports: Arthroscopic Knee Social & Family History - Family History Family Medical History: Noncontributory - Tobacco Use Smoking Status *Q: Current Every Day Smoker Years of Tobacco use: 40 Packs/Tins Daily: 7 - Caffeine Use Caffeine Use: Reports: Soda - Recreational Drug Use Recreational Drug Use: Yes Drug Use in Last 12 Months: Yes Recreational Drug Type: Reports: Marijuana/Hashish Recreational Drug Use Frequency: Daily ED ROS GENERAL - Review of Systems Review Of Systems: See Below Constitutional: Denies: Fever, Chills, Night Sweats HEENT: Reports: No Symptoms Respiratory: Denies: Shortness of Breath, Wheezing, Cough Cardiovascular: Denies: Chest Pain, Dyspnea on Exertion, Lightheadedness, Palpitations Endocrine: Reports: No Symptoms GI/Abdominal: Denies: Abdominal Pain, Nausea, Vomiting : Denies: Flank Pain Musculoskeletal: Reports: Neck Pain, Arm Pain (left arm) Skin: Denies: Cyanosis, Diaphoresis Neurological: Reports: Numbness (bilateral legs L>R). Denies: Headache, Syncope , Trouble Speaking, Difficulty Walking, Weakness, Change in Speech, Gait Disturbance Psychiatric: Reports: No Symptoms Hematologic/Lymphatic: Reports: Easy Bleeding (Plavix) Immunologic: Reports: No Symptoms ED EXAM, GENERAL - Physical Exam Exam: See Below Exam Limited By: No Limitations General Appearance: Alert, No Apparent Distress, Thin Eye Exam: Bilateral Eye: EOMI, PERRL (Pupils equal) Ears: Hearing Grossly Normal Nose: Normal Inspection, Normal Mucosa, No Blood Throat/Mouth: Normal Inspection, Normal Lips, Normal Oropharynx, Normal Voice, No Airway Compromise Head: Atraumatic, Normocephalic Neck: Normal Inspection, Supple, Limited Range of Motion (Has a proximally 60 of rotation bilaterally, slightly limited extension to 15, flexion is 25), Tender Lateral (left paraspinal muscles cervical) Respiratory/Chest: No Respiratory Distress, Lungs Clear, Normal Breath Sounds Cardiovascular: Normal Peripheral Pulses, Regular Rate, Rhythm Peripheral Pulses: 2+: Carotid (L), Carotid (R), Dorsalis Pedis (L), Dorsalis Pedis (R) GI/Abdominal: Soft, Non-Tender Back Exam: Normal Inspection. No: CVA Tenderness (L), CVA Tenderness (R), Paraspinal Tenderness, Vertebral Tenderness Extremities: Normal Inspection, Normal Range of Motion, Non-Tender, Other (Her strengths are 5 out of 5 with finger abduction, wrist extension, biceps, triceps , shoulder abduction.) Neurological: Alert, Oriented, CN II-XII Intact, Normal Cognition, Normal Gait, Normal Reflexes, No Motor/Sensory Deficits Psychiatric: Normal Affect, Normal Mood Skin Exam: Warm, Dry, Intact, Normal Color, No Rash EKG INTERPRETATION EKG Date: 12/16/19 Time: 08:35 Rhythm: NSR Rate (Beats/Min): 57 Slater: Normal P-Wave: Present QRS: Normal ST-T: Normal QT: Normal Comparison: NA - No Prior EKG EKG Interpretation Comments: Sinus bradycardia otherwise normal ECG Course - Vital Signs Last Recorded V/S: Last Vital Signs Temp 96.7 F L 06/07/20 08:45 Pulse 55 L 12/16/19 08:45 Resp 20 12/16/19 08:45 BP 148/71 H 12/16/19 08:45 Pulse Ox 98 12/16/19 08:45 - Orders/Labs/Meds Orders: Active Orders 24 hr Category Date Time Status EKG Documentation Completion [RC] ASDIRECTED Care 12/16/19 10:42 Active EKG 12 Lead [EK] Stat Ther 12/16/19 08:30 Ordered Labs: Laboratory Tests 12/16/19 12/16/19 Range/Units 09:47 09:47 WBC 4.78 L (5.00-10.00) 10^3/uL RBC 4.57 (4.50-6.00) 10^6/uL Hgb 13.7 (13.0-17.0) g/dL Hct 40.8 (40.0-52.0) % MCV 89.3 (82.0-92.0) fL MCH 30.0 (27.0-31.0) pg MCHC 33.6 (32.0-36.0) g/dL RDW 14.4 (11.5-14.5) % Plt Count 129 L (150-400) 10^3/uL MPV 9.5 (7.4-10.4) fL Immature Gran % (Auto) 0.0 (0.0-5.0) % Neut % (Auto) 60.5 (50.0-70.0) % Lymph % (Auto) 25.5 (20.0-40.0) % [place] % (Auto) 11.1 H (2.0-8.0) % Eos % (Auto) 1.9 (1.0-3.0) % Baso % (Auto) 1.0 (0.0-1.0) % Neut # (Auto) 2.89 (2.50-7.00) 10^3/uL Lymph # (Auto) 1.22 (1.00-4.00) 10^3/uL [place] # (Auto) 0.53 (0.10-0.80) 10^3/uL Eos # (Auto) 0.09 L (0.10-0.30) 10^3/uL Baso # (Auto) 0.05 (0.00-0.10) 10^3/uL Immature Gran # (Auto) 0.00 (0.00-0.50) 10^3/uL Sodium 140 (136-145) mmol/L Potassium 4.2 (3.3-5.3) mmol/L Chloride 107 (98-115) mmol/L Carbon Dioxide 25.1 (21.0-32.0) mmol/L Anion Gap 12.1 (5-15) mmol/L BUN 23 (6-25) mg/dL Creatinine 0.95 (0.51-1.17) mg/dL Est Cr Clr Drug Dosing 80.36 mL/min Estimated GFR (MDRD) > 60 mL/min Glucose 99 (75 - 99) mg/dL Calcium 8.4 L (8.7-10.3) mg/dL Troponin I (0.00-0.070) ng/mL Meds: Medications Discontinued Medications Generic Name Dose Route Start Last Admin Trade Name Freq PRN Reason Stop Dose Admin Cyclobenzaprine HCl 10 mg 12/16/19 09:38 12/16/19 09:52 Flexeril PO 12/16/19 09:39 10 mg ONETIME ONE Administration Meperidine HCl 25 mg 12/16/19 09:36 12/16/19 10:05 Demerol IM 12/16/19 09:37 25 mg ONETIME ONE Administration - Radiology Interpretation Free Text/Narrative:: X-rays cervical spine 3 views Discussion: Cervical spondylosis, including advanced degenerative disc disease at C4-5 through C6-7 Mild to moderate changes of spondylosis everywhere in the cervical spine. No acute Fracture or compression deformity. Impression: Cervical spondylosis - Re-Assessments/Exams Free Text/Narrative Re-Assessment/Exam: 12/16/19 10:35 Patient rated his neck pain upon arrival a 9 out of 10, 25 of Demerol IM given. Patient now states that his pain is a 2 out of 10. Departure - Departure Time of Disposition: 11:52 Disposition: Home, Self-Care 01 Condition: Good Clinical Impression: Cervical spondylosis with radiculopathy - Discharge Information Instructions: Cervical Radiculopathy Referrals: Nancy Graham MD [Primary Care Provider] - Forms: ED Department Discharge Sepsis Event Note - Evaluation Sepsis Screening Result: No Definite Risk - Focused Exam Vital Signs: Vital Signs Temp Pulse Resp BP Pulse Ox 12/16/19 08:45 96.7 F L 55 L 20 148/71 H 98 Date Exam was Performed: 12/16/19 Time Exam was Performed: 11:33 - My Orders Last 24 Hours: My Active Orders 12/16/19 08:30 EKG 12 Lead [EK] Stat 12/16/19 10:42 EKG Documentation Completion [RC] ASDIRECTED - Assessment/Plan Last 24 Hours: My Active Orders 12/16/19 08:30 EKG 12 Lead [EK] Stat 12/16/19 10:42 EKG Documentation Completion [RC] ASDIRECTED Assessment:: Cervical spondylosis with radiculopathy Plan: 1. Muscle relaxers as needed for discomfort. 2. For severe pain oxycodone which you have at home. 3. If severe pain in the neck particularly radicular arm pain persisted would recommend MRI of cervical spine. 4. Follow-up with Dr. Nancy Cuellar 1-2 weeks. 5. If any changes in pain such as shortness of breath, chest pain, palpitations , chest pressure you should return to the ER for further workup. 6. Smoking sensation.
[2019-12-16] MEDS: Cyclobenzaprine 10 MG Tab PO PRN (11:50)
[2019-12-16 11:53] VITALS: BP 135/75; PULSE 56
== END | disposition home or self-care (01) ==
LOC: KA.ED 08:22
DX: M47.22 Other spondylosis with radiculopathy, cervical region (principal); I10 Essential (primary) hypertension; E78.00 Pure hypercholesterolemia, unspecified; I25.2 Old myocardial infarction; J44.9 Chronic obstructive pulmonary disease, unspecified; F17.210 Nicotine dependence, cigarettes, uncomplicated; Z88.1 Allergy status to other antibiotic agents; Z79.82 Long term (current) use of aspirin; Z79.899 Other long term (current) drug therapy; Z95.1 Presence of aortocoronary bypass graft
CPT/HCPCS: 36415; 72040; 80048; 84484; 85025; 93005; 96372; 99284; 99284-25; A9270-GY; J2175

== ENCOUNTER 2020-02-05 19:28 | Emergency (ER) | payer MEDICARE, MEDICAID ==
--- NOTE | 2020-02-05 20:31 | EDM.PDOC ---
ED HPI GENERAL MEDICAL PROBLEM - General Chief Complaint: General Stated Complaint: abd pain Time Seen by Provider: 02/05/20 20:21 Source of Information: Reports: Patient History Limitations: Reports: No Limitations - History of Present Illness INITIAL COMMENTS - FREE TEXT/NARRATIVE: Patient is a 59 year resents to the emergency department via private vehicle with a complaint of pain. Patient has history of recurrent bladder carcinoma and underwent a transurethral resection this afternoon. Procedure was performed at [facility]. Patient states that he drove home earlier this evening, and developed lower abdominal pain. Noticed blood and clots in indwelling catheter leg bag. Patient denies suspicion for withdrawal of catheter. Patient denies chest pain, fever, shortness of breath, or testicular pain. Onset: Today Duration: Hour(s):, Getting Worse Location: Reports: Abdomen Quality: Reports: Pressure Severity: Mild Improves with: Reports: None Worsens with: Reports: None Associated Symptoms: Reports: No Other Symptoms - Related Data Allergies Allergy/AdvReac Type Severity Reaction Status Date / Time cephalexin Allergy Vomiting Verified 12/17/19 09:54 Home Meds: Home Meds Aspirin [Lo-Dose Aspirin EC] 81 mg PO DAILY 10/06/16 [History] oxyCODONE HCl/Acetaminophen [Percocet 10-325 mg Tablet] 1 - 2 tab PO Q6H PRN 12/02/16 [History] Nitroglycerin [Nitrostat] 0.4 mg PO ASDIRECTED PRN 09/16/17 [History] Triamcinolone Acetonide [Triamcinolone Acetonide 0.1% Oint] 2 - 3 ml IDERM ASD IRECTED PRN 09/16/17 [History] Albuterol/Ipratropium [Combivent Respimat] 1 puff IH DAILY PRN 01/26/19 [History] Fluticasone/Salmeterol [Advair 100-50] 1 puff INH BID 01/26/19 [History] Tamsulosin HCl [Flomax] 0.4 mg PO DAILY 01/26/19 [History] amLODIPine Besylate [Norvasc] 2.5 mg PO DAILY 01/26/19 [History] atorvaSTATin Calcium [Atorvastatin Calcium] 40 mg PO BEDTIME 01/26/19 [History] Clopidogrel [Plavix] 75 mg PO DAILY 12/16/19 [History] Past Medical History HEENT History: Reports: None Cardiovascular History: Reports: High Cholesterol, Hypertension, PR, Stents Respiratory History: Reports: COPD Gastrointestinal History: Reports: Colon Polyp, Hemorrhoids, Other (See Below) Other Gastrointestinal History: cyst on left kidney Genitourinary History: Reports: Other (See Below) Other Genitourinary History: mass on bladder, blood in urine Musculoskeletal History: Reports: Back Pain, Chronic, Neck Pain, Chronic Neurological History: Reports: None Psychiatric History: Reports: PTSD Endocrine/Metabolic History: Reports: None Hematologic History: Reports: None Oncologic (Cancer) History: Reports: Bladder Dermatologic History: Reports: None - Infectious Disease History Infectious Disease History: Reports: Chicken Pox - Past Surgical History HEENT Surgical History: Reports: None Cardiovascular Surgical History: Reports: Coronary Artery Bypass Respiratory Surgical History: Reports: None GI Surgical History: Reports: Appendectomy, Colonoscopy, Polypectomy Endocrine Surgical History: Reports: None Neurological Surgical History: Reports: Scoliosis Musculoskeletal Surgical History: Reports: Arthroscopic Knee Social & Family History - Family History Family Medical History: Noncontributory - Caffeine Use Caffeine Use: Reports: Soda ED ROS GENERAL - Review of Systems Review Of Systems: Comprehensive ROS is negative, except as noted in HPI. Constitutional: Reports: No Symptoms HEENT: Reports: No Symptoms Respiratory: Reports: No Symptoms Cardiovascular: Reports: No Symptoms Endocrine: Reports: No Symptoms GI/Abdominal: Reports: Abdominal Pain (Suprapubic) : Reports: Hematuria Musculoskeletal: Reports: No Symptoms Skin: Reports: No Symptoms Neurological: Reports: No Symptoms Psychiatric: Reports: No Symptoms Hematologic/Lymphatic: Reports: No Symptoms Immunologic: Reports: No Symptoms ED EXAM, GENERAL - Physical Exam Exam: See Below Exam Limited By: No Limitations General Appearance: Alert, WD/WN, No Apparent Distress Throat/Mouth: Normal Inspection, Normal Oropharynx, No Airway Compromise Respiratory/Chest: No Respiratory Distress, Lungs Clear, Normal Breath Sounds, No Accessory Muscle Use, Chest Non-Tender Cardiovascular: Regular Rate, Rhythm, No Murmur GI/Abdominal: Normal Bowel Sounds, Soft, Tender (Mildly tender suprapubic) (Male) Exam: No Hernia Back Exam: Normal Inspection. No: CVA Tenderness (L), CVA Tenderness (R) Extremities: Normal Inspection, No Pedal Edema Neurological: Alert, Oriented, Normal Cognition Psychiatric: Normal Affect, Normal Mood Skin Exam: Warm, Dry, Intact, Normal Color, No Rash Lymphatic: No Adenopathy Course - Re-Assessments/Exams Free Text/Narrative Re-Assessment/Exam: 02/05/20 20:35 Patient afebrile, vital signs stable, urinary catheter irrigated to clear with three-way valve. Patient feels much better. Numerous clots evident. Patient will follow-up with urology or return to the ER sooner if symptoms continue or worsen Departure - Departure Time of Disposition: 20:35 Disposition: Home, Self-Care 01 Clinical Impression: S/P TURP (status post transurethral resection of prostate) Mcmullen catheter problem Qualifiers: Encounter type: initial encounter Qualified Code(s): T83.9XXA - Unspecified complication of genitourinary prosthetic device, implant and graft, initial encounter - Discharge Information Instructions: Transurethral Resection of the Prostate, Care After, Indwelling Urinary Catheter Care, Adult, [id number] Referrals: Nancy Graham MD [Primary Care Provider] - Additional Instructions: Follow-up with urology as scheduled. Return to emergency department sooner symptoms continue or worsen. - Assessment/Plan Assessment:: Urinary catheter malfunction Plan: Follow-up with urology
[2020-02-05 22:28] VITALS: BP 151/93; PULSE 71
== END 2020-02-05 21:12 | disposition home or self-care (01) ==
LOC: KA.ED 19:28
DX: T83.098A Other mechanical complication of other urinary catheter, initial encounter (principal); Z88.1 Allergy status to other antibiotic agents; E78.00 Pure hypercholesterolemia, unspecified; I10 Essential (primary) hypertension; I25.2 Old myocardial infarction; Z95.5 Presence of coronary angioplasty implant and graft; J44.9 Chronic obstructive pulmonary disease, unspecified; Z79.82 Long term (current) use of aspirin; Z79.899 Other long term (current) drug therapy
CPT/HCPCS: 51798; 99283

== ENCOUNTER 2020-02-07 18:31 | Emergency (ER) | payer MEDICARE, MEDICAID ==
[2020-02-07] MEDS: HYDROmorphone 1 MG/ML Syringe IVPUSH ONE (18:56)
[2020-02-07 19:02] VITALS: BP 119/96; PULSE 76
--- NOTE | 2020-02-07 19:05 | EDM.PDOC ---
ED HPI GENERAL MEDICAL PROBLEM - General Stated Complaint: BLOOD CLOTS IN URINE Time Seen by Provider: 02/07/20 18:43 Source of Information: Reports: Patient History Limitations: Reports: No Limitations - History of Present Illness INITIAL COMMENTS - FREE TEXT/NARRATIVE: Patient presents with severe low abdominal pain that started at 1730 while urinating. He is 2 days s/p bladder tumor removal and took catheter out at 1100 today at direction of his urologist in [place]. Over the next few hours, he urinated several times without difficulty but was passing small clots. While urinating an hour ago, he suddenly developed severe pain in low abdomen and the urine stopped. He hasn't been able to pass urine since. He and his started for [place] but [address] pain was too severe to continue so they stopped and called ambulance. Bilateral Lower Abdomen Pain Score (Numeric/FACES): 7 - Related Data Allergies Allergy/AdvReac Type Severity Reaction Status Date / Time cephalexin Allergy Vomiting Verified 02/07/20 19:19 Sulfa (Sulfonamide Allergy Cannot Verified 02/07/20 19:19 Antibiotics) Remember Home Meds: Home Meds Aspirin [Lo-Dose Aspirin EC] 81 mg PO DAILY 10/06/16 [History] oxyCODONE HCl/Acetaminophen [Percocet 10-325 mg Tablet] 1 - 2 tab PO Q6H PRN 12/02/16 [History] Nitroglycerin [Nitrostat] 0.4 mg PO ASDIRECTED PRN 09/16/17 [History] Triamcinolone Acetonide [Triamcinolone Acetonide 0.1% Oint] 2 - 3 ml IDERM ASDIRECTED PRN 09/16/17 [History] Albuterol/Ipratropium [Combivent Respimat] 1 puff IH ASDIRECTED PRN 01/26/19 [History] Fluticasone/Salmeterol [Advair 100-50] 1 puff INH BID 01/26/19 [History] Tamsulosin HCl [Flomax] 0.4 mg PO DAILY 01/26/19 [History] amLODIPine Besylate [Norvasc] 2.5 mg PO DAILY 01/26/19 [History] atorvaSTATin Calcium [Atorvastatin Calcium] 40 mg PO BEDTIME 01/26/19 [History] Clopidogrel [Plavix] 75 mg PO DAILY 12/16/19 [History] Cyclobenzaprine [Flexeril] 10 mg PO TID PRN 02/05/20 [History] levoFLOXacin [Levofloxacin] 250 mg PO DAILY 02/05/20 [History] Past Medical History HEENT History: Reports: None Cardiovascular History: Reports: High Cholesterol, Hypertension, [place], Stents Respiratory History: Reports: COPD Gastrointestinal History: Reports: Colon Polyp, Hemorrhoids, Other (See Below) Other Gastrointestinal History: cyst on left kidney Genitourinary History: Reports: Other (See Below) Other Genitourinary History: mass on bladder, blood in urine Musculoskeletal History: Reports: Back Pain, Chronic, Neck Pain, Chronic Neurological History: Reports: None Psychiatric History: Reports: PTSD Endocrine/Metabolic History: Reports: None Hematologic History: Reports: None Oncologic (Cancer) History: Reports: Bladder Dermatologic History: Reports: None - Infectious Disease History Infectious Disease History: Reports: Chicken Pox - Past Surgical History HEENT Surgical History: Reports: None Cardiovascular Surgical History: Reports: Coronary Artery Bypass Respiratory Surgical History: Reports: None GI Surgical History: Reports: Appendectomy, Colonoscopy, Polypectomy Endocrine Surgical History: Reports: None Neurological Surgical History: Reports: Scoliosis Musculoskeletal Surgical History: Reports: Arthroscopic Knee Social & Family History - Family History Family Medical History: Noncontributory - Caffeine Use Caffeine Use: Reports: Soda Other Caffeine Use: sprite ED ROS GENERAL - Review of Systems Review Of Systems: See Below Constitutional: Denies: Fever, Weakness HEENT: Denies: Ear Pain, Throat Swelling, Vision Change Respiratory: Denies: Shortness of Breath, Cough Cardiovascular: Reports: No Symptoms GI/Abdominal: Reports: Abdominal Pain. Denies: Diarrhea (hasn't passed stool since his surgery on Tuesday), Nausea, Vomiting : Reports: Hematuria, Pain, Urgency, Urinary Retention. Denies: Flank Pain Musculoskeletal: Reports: No Symptoms Skin: Denies: Cyanosis, Jaundice, Mottled, Pallor, Diaphoresis Neurological: Denies: Confusion, Dizziness, Headache, Numbness, Seizure, Syncope, Trouble Speaking Psychiatric: Reports: Anxiety. Denies: Agitation, Confusion ED EXAM, RENAL/ - Physical Exam Exam: See Below Exam Limited By: No Limitations General Appearance: Alert, WD/WN, No Apparent Distress Eye Exam: Bilateral Eye: EOMI, Normal Inspection, PERRL Ears: Normal External Exam, Normal Canal, Hearing Grossly Normal, Normal TMs Nose: Normal Inspection, No Blood Throat/Mouth: Normal Inspection, Normal Lips, Normal Voice, No Airway Compromise Head: Atraumatic, Normocephalic Neck: Normal Inspection, Full Range of Motion Respiratory/Chest: No Respiratory Distress, Lungs Clear, Normal Breath Sounds, No Accessory Muscle Use Cardiovascular: Regular Rate, Rhythm, No Murmur GI/Abdominal: Guarding, Tender (across low abdomen) Back Exam: Normal Inspection, Full Range of Motion. No: CVA Tenderness (L), CVA Tenderness (R) Extremities: Normal Inspection, Normal Range of Motion Neurological: Alert, Oriented, Normal Cognition, No Motor/Sensory Deficits Psychiatric: Normal Affect, Normal Mood Skin Exam: Warm, Dry, Intact, Normal Color, No Rash Course - Vital Signs Last Recorded V/S: Last Vital Signs Temp 98.2 F 02/07/20 18:51 Pulse 76 02/07/20 18:51 Resp 18 02/07/20 18:51 BP 119/96 H 02/07/20 18:51 Pulse Ox 96 02/07/20 18:51 - Orders/Labs/Meds Orders: Active Orders 24 hr Category Date Time Status Insert Mcmullen Catheter [Insert Urinary Catheter] [OM.PC] Care 02/07/20 19:05 Ordered Q24H Urinary Catheter Assessment [RC] ASDIRECTED Care 02/07/20 19:14 Active Labs: Laboratory Tests 02/07/20 02/07/20 Range/Units 18:50 18:50 WBC 9.34 (5.00-10.00) 10^3/uL RBC 4.36 L (4.50-6.00) 10^6/uL Hgb 13.5 (13.0-17.0) g/dL Hct 38.4 L (40.0-52.0) % MCV 88.1 (82.0-92.0) fL MCH 31.0 (27.0-31.0) pg MCHC 35.2 (32.0-36.0) g/dL RDW 13.9 (11.5-14.5) % Plt Count 107 L (150-400) 10^3/uL MPV 9.8 (7.4-10.4) fL Immature Gran % (Auto) 0.2 (0.0-5.0) % Neut % (Auto) 71.1 H (50.0-70.0) % Lymph % (Auto) 13.6 L (20.0-40.0) % Sterling % (Auto) 12.6 H (2.0-8.0) % Eos % (Auto) 2.0 (1.0-3.0) % Baso % (Auto) 0.5 (0.0-1.0) % Neut # (Auto) 6.63 (2.50-7.00) 10^3/uL Lymph # (Auto) 1.27 (1.00-4.00) 10^3/uL Sterling # (Auto) 1.18 H (0.10-0.80) 10^3/uL Eos # (Auto) 0.19 (0.10-0.30) 10^3/uL Baso # (Auto) 0.05 (0.00-0.10) 10^3/uL Immature Gran # (Auto) 0.02 (0.00-0.50) 10^3/uL Sodium 138 (136-145) mmol/L Potassium 3.7 (3.3-5.3) mmol/L Chloride 102 (98-115) mmol/L Carbon Dioxide 24.8 (21.0-32.0) mmol/L Anion Gap 14.9 (5-15) mmol/L BUN 22 (6-25) mg/dL Creatinine 1.18 H (0.51-1.17) mg/dL Est Cr Clr Drug Dosing 64.25 mL/min Estimated GFR (MDRD) > 60 mL/min Glucose 100 H (75 - 99) mg/dL Calcium 8.7 (8.7-10.3) mg/dL Meds: Medications Discontinued Medications Generic Name Dose Route Start Last Admin Trade Name Freq PRN Reason Stop Dose Admin Hydromorphone HCl 1 mg 02/07/20 18:46 02/07/20 18:56 Dilaudid IVPUSH 02/07/20 18:47 1 mg ONETIME ONE Administration - Re-Assessments/Exams Free Text/Narrative Re-Assessment/Exam: 02/07/20 19:42 After the Dilaudid, pain dropped from 8 to 5. I discussed case with Dr. Fontanez, urologist [facility] who advised placing a catheter and seeing if it relieved pain. If so he can follow up tomorrow with Dr. Roberts at the urology clinic. If not we should send him tonight for continuous bladder irrigation. After placing catheter, pain dropped from 5 to 2 and patient wants to go home and will go to [place] ER if it worsens, as he was planning to do tonight. Patient discharged to home in stable condition after discussion of findings and treatment plan. Departure - Departure Time of Disposition: 19:39 Disposition: Home, Self-Care 01 Condition: Good Clinical Impression: Hematuria, Acute retention of urine Abdominal pain Qualifiers: Abdominal location: lower abdomen, unspecified Qualified Code(s): R10.30 - Lower abdominal pain, unspecified - Discharge Information Additional Instructions: Call your urologist tomorrow morning to see him in clinic tomorrow as recommended by Dr. Fontanez. If this worsens tonight you should go to ER as we discussed. Sepsis Event Note (ED) - Focused Exam Vital Signs: Vital Signs Temp Pulse Resp BP Pulse Ox 02/07/20 18:51 98.2 F 76 18 119/96 H 96 - My Orders Last 24 Hours: My Active Orders 02/07/20 19:05 Insert Mcmullen Catheter [Insert Urinary Catheter] [OM.PC] Q24H 02/07/20 19:14 Urinary Catheter Assessment [RC] ASDIRECTED - Assessment/Plan Last 24 Hours: My Active Orders 02/07/20 19:05 Insert Mcmullen Catheter [Insert Urinary Catheter] [OM.PC] Q24H 02/07/20 19:14 Urinary Catheter Assessment [RC] ASDIRECTED
[2020-02-07 19:29] LABS: ANION GAP 14.9 mmol/L (5-15); CHLORIDE,CL 102 mmol/L (98-115); SODIUM,NA 138 mmol/L (136-145)
== END 2020-02-07 19:50 | disposition home or self-care (01) ==
LOC: KA.ED 18:31 → SUPCPDRO 18:31 → KA.ED 19:50
DX: R33.9 Retention of urine, unspecified (principal); R10.30 Lower abdominal pain, unspecified; R31.9 Hematuria, unspecified; E78.00 Pure hypercholesterolemia, unspecified; I10 Essential (primary) hypertension; I25.2 Old myocardial infarction; Z95.5 Presence of coronary angioplasty implant and graft; J44.9 Chronic obstructive pulmonary disease, unspecified; Z79.82 Long term (current) use of aspirin; Z79.899 Other long term (current) drug therapy; Z88.1 Allergy status to other antibiotic agents; Z88.2 Allergy status to sulfonamides
CPT/HCPCS: 36415; 51702; 80048; 85025; 96374; 99284; 99284-25; J1170

== ENCOUNTER 2021-01-31 19:05 | Emergency (ER) | payer MEDICARE, MEDICAID ==
[2021-01-31] MEDS ORDERED: Ciprofloxacin 500 MG Tab PO ONE ×2 (19:31→19:32)
[2021-01-31 19:34] VITALS: BP 120/78; PULSE 64
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
== END 2021-01-31 19:40 | disposition home or self-care (01) ==
LOC: KA.ED 19:05
DX: N30.01 Acute cystitis with hematuria (principal); E78.00 Pure hypercholesterolemia, unspecified; I10 Essential (primary) hypertension; J44.9 Chronic obstructive pulmonary disease, unspecified; I25.2 Old myocardial infarction; Z95.1 Presence of aortocoronary bypass graft; Z79.899 Other long term (current) drug therapy
CPT/HCPCS: 81001; 87086; 87088; 99283; 99284; A9270-GY

== ENCOUNTER 2021-12-22 16:51 | Emergency (ER) | payer MEDICARE, MEDICAID ==
[2021-12-22] MEDS: Ondansetron 4 MG/2 ML SDV IVPUSH ONE (17:09)
[2021-12-22] MEDS: Sodium Chloride 0.9% 10 ML Syringe FLUSH PRN (17:10)
[2021-12-22] MEDS: Sodium Chloride 0.9% 1,000 ML IV ONE ×2 (17:10→18:25)
[2021-12-22] MEDS: hydrALAZINE 20 MG/ML SDV IVPUSH ONE (17:32)
[2021-12-22 17:42] LABS: ANION GAP 13.5 mmol/L (5-15)
[2021-12-22 19:17] VITALS: BP 149/89; PULSE 63
[2021-12-22] MEDS: Losartan 25 MG Tab PO SCH (19:24)
== END 2021-12-22 19:30 | disposition home or self-care (01) ==
LOC: KA.ED 16:51
DX: E86.0 Dehydration (principal); I10 Essential (primary) hypertension; M54.50 Low back pain, unspecified; R10.9 Unspecified abdominal pain; R63.4 Abnormal weight loss; R74.8 Abnormal levels of other serum enzymes; E78.00 Pure hypercholesterolemia, unspecified; J44.9 Chronic obstructive pulmonary disease, unspecified; Z79.899 Other long term (current) drug therapy; Z88.8 Allergy status to other drugs, medicaments and biological substances; Z88.0 Allergy status to penicillin; Z88.2 Allergy status to sulfonamides
CPT/HCPCS: 36415; 71045; 80053; 81001; 82150; 83605; 83690; 85025; 87040; 96361; 96374; 96375; 99284; 99284-25; A9270-GY; J0360; J2405; J3490; J7030

== ENCOUNTER 2022-02-21 13:17 | Emergency (ER) | payer MEDICARE, MEDICAID ==
[2022-02-21] MEDS ORDERED: Sodium Chloride 0.9% 10 ML Syringe FLUSH PRN (13:30)
[2022-02-21] MEDS ORDERED: Sodium Chloride 0.9% 1,000 ML IV ONE (13:30)
[2022-02-21 14:05] LABS: ANION GAP 15.6 mmol/L (5-15)
[2022-02-21] MEDS ORDERED: HYDROmorphone 1 MG/ML Syringe IVPUSH ONE (14:10)
[2022-02-21 14:46] VITALS: BP 139/91; PULSE 69
== END 2022-02-21 15:13 | disposition home or self-care (01) ==
LOC: KA.ED 13:17
DX: R10.9 Unspecified abdominal pain (principal); R31.9 Hematuria, unspecified; N13.30 Unspecified hydronephrosis; I25.10 Atherosclerotic heart disease of native coronary artery without angina pectoris; E78.00 Pure hypercholesterolemia, unspecified; I10 Essential (primary) hypertension; I25.2 Old myocardial infarction; J44.9 Chronic obstructive pulmonary disease, unspecified; Z88.0 Allergy status to penicillin; Z88.1 Allergy status to other antibiotic agents; Z88.2 Allergy status to sulfonamides; Z79.899 Other long term (current) drug therapy
CPT/HCPCS: 36415; 74176; 80053; 81001; 85025; 87086; 96361; 96374; 99284; 99284-25; J1170; J3490; J7030

== ENCOUNTER 2022-02-27 09:30 | Emergency (ER) | payer MEDICARE, MEDICAID ==
[2022-02-27 09:57] VITALS: PULSE 93
[2022-02-27 10:30] VITALS: BP 135/99
[2022-02-27] MEDS: cefTRIAXone 1 GM Vial IM ONE (10:48)
== END 2022-02-27 10:50 | disposition home or self-care (01) ==
LOC: KA.ED 09:30
DX: N39.0 Urinary tract infection, site not specified (principal); I25.10 Atherosclerotic heart disease of native coronary artery without angina pectoris; E78.00 Pure hypercholesterolemia, unspecified; I10 Essential (primary) hypertension; I25.2 Old myocardial infarction; J44.9 Chronic obstructive pulmonary disease, unspecified; F17.210 Nicotine dependence, cigarettes, uncomplicated; Z88.1 Allergy status to other antibiotic agents; Z88.0 Allergy status to penicillin; Z88.2 Allergy status to sulfonamides; Z79.82 Long term (current) use of aspirin; Z79.899 Other long term (current) drug therapy; Z95.1 Presence of aortocoronary bypass graft
CPT/HCPCS: 81001; 87086; 87088; 96372; 99284; J0696

== ENCOUNTER 2022-03-09 11:17 | Emergency (ER) | payer MEDICARE, MEDICAID ==
[2022-03-09] MEDS ORDERED: Sodium Chloride 0.9% 10 ML Syringe FLUSH PRN (11:32)
[2022-03-09 12:02] LABS: ANION GAP 10.5 mmol/L (5-15)
[2022-03-09 12:09] VITALS: BP 105/74; PULSE 83
== END 2022-03-09 13:05 | disposition home or self-care (01) ==
LOC: KA.ED 11:17
DX: R31.0 Gross hematuria (principal); I25.10 Atherosclerotic heart disease of native coronary artery without angina pectoris; E78.00 Pure hypercholesterolemia, unspecified; I10 Essential (primary) hypertension; I25.2 Old myocardial infarction; J44.9 Chronic obstructive pulmonary disease, unspecified; Z95.1 Presence of aortocoronary bypass graft; Z88.0 Allergy status to penicillin; Z88.1 Allergy status to other antibiotic agents; Z88.2 Allergy status to sulfonamides; Z79.899 Other long term (current) drug therapy; Z79.82 Long term (current) use of aspirin
CPT/HCPCS: 36415; 51798; 80053; 81001; 85025; 87086; 99283; 99284

== ENCOUNTER 2022-06-23 14:18 | Emergency (ER) | payer MEDICARE, MEDICAID ==
[2022-06-23] MEDS ORDERED: Sodium Chloride 0.9% 10 ML Syringe FLUSH PRN (14:22)
[2022-06-23] MEDS: Sodium Chloride 0.9% 1,000 ML IV SCH (14:41)
[2022-06-23] MEDS: Ondansetron 4 MG/2 ML SDV IVPUSH ONE (14:44)
[2022-06-23 14:49] LABS: ANION GAP 10.9 mmol/L (5-15)
[2022-06-23 15:14] LABS: RESPIRATORY SYNCYTIAL VIR NAA NEGATIVE (NEGATIVE)
[2022-06-23 15:15] LABS: CORONAVIRUS COVID-19 NAA NEGATIVE (NEGATIVE)
[2022-06-23 16:46] VITALS: BP 117/76; PULSE 58
== END 2022-06-23 18:15 | disposition home or self-care (01) ==
LOC: KA.ED 14:18
DX: J10.1 Influenza due to other identified influenza virus with other respiratory manifestations (principal); R11.2 Nausea with vomiting, unspecified; I25.10 Atherosclerotic heart disease of native coronary artery without angina pectoris; E78.00 Pure hypercholesterolemia, unspecified; I10 Essential (primary) hypertension; I25.2 Old myocardial infarction; J44.9 Chronic obstructive pulmonary disease, unspecified; Z88.1 Allergy status to other antibiotic agents; Z88.2 Allergy status to sulfonamides; Z79.82 Long term (current) use of aspirin; Z79.899 Other long term (current) drug therapy; Z20.822 Contact with and (suspected) exposure to COVID-19
CPT/HCPCS: 0241U; 36415; 80048; 85025; 96361; 96374; 99284; 99284-25; J2405; J7030

== ENCOUNTER 2023-05-31 07:52 | Day surgery (SDC) | payer MEDICARE, MEDICAID ==
[2023-05-31] MEDS ORDERED: Lactated Ringers 1,000 ML IV SCH (08:00)
[2023-05-31] MEDS ORDERED: Sodium Chloride 0.9% 10 ML Syringe FLUSH PRN (08:00)
[2023-05-31] MEDS ORDERED: Midazolam 1 MG/ML 2 ML SDV ONE (08:53)
[2023-05-31] MEDS ORDERED: Propofol 200 MG/20 ML SDV ONE (08:53)
[2023-05-31 12:17] VITALS: BP 133/79; PULSE 55
== END 2023-05-31 11:29 | disposition home or self-care (01) ==
LOC: KA.SDS 07:52
PROVIDERS: ATTEND Surgery
DX: K59.00 Constipation, unspecified (principal); K62.1 Rectal polyp; R10.31 Right lower quadrant pain; R19.4 Change in bowel habit; Z79.899 Other long term (current) drug therapy; Z79.82 Long term (current) use of aspirin; Z88.1 Allergy status to other antibiotic agents; Z88.2 Allergy status to sulfonamides
CPT/HCPCS: 00811; 00812; 88305; J2250; J2704; J7120